=== PATIENT | female | born 1930 | race Caucasian/White ===

== ENCOUNTER 2018-05-10 22:11 | Emergency (ER) | payer OTHER, MEDICARE ==
[2018-05-10] MEDS ORDERED: cloNIDine HCl 0.1 MG TAB ONE (22:47)
--- NOTE | 2018-05-10 23:47 | ER ---
Nurse's Notes [facility] Name: Lolly Woo Age: 87 yrs Sex: Female : 1930 Arrival Date: 05/10/2018 Time: 22:13 Bed 24 Private MD: Debbie Gale C Diagnosis: HYPERTENSIVE URGENCY Presentation: 05/10 22:34 Presenting complaint: Patient states: her blood pressure has been high lately. bb Transition of care: patient was not received from another setting of care. Onset of symptoms is unknown. Risk Assessment: Do you want to hurt yourself or someone else? Patient reports no desire to harm self or others. Initial Sepsis Screen: Does the patient meet any 2 criteria? No. Patient's initial sepsis screen is negative. Does the patient have a suspected source of infection? No. Patient's initial sepsis screen is negative. Care prior to arrival: None. 22:34 Method Of Arrival: Ambulatory bb 22:34 Acuity: GLENNY 3 bb Triage Assessment: 22:43 General: Appears in no apparent distress. comfortable, slender, Behavior is calm, fc cooperative, appropriate for age. Pain: Denies pain. EENT: No deficits noted. 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 Full function Gait is steady, Speech is normal, Facial symmetry appears normal, Reports dizziness. Cardiovascular: Denies chest pain, Heart tones S1 S2 present Capillary refill < 3 seconds. Respiratory: No deficits noted. GI: No deficits noted. : No deficits noted. Derm: Skin is pink, warm \T\ dry. Musculoskeletal: Circulation, motion, and sensation intact. Capillary refill < 3 seconds, Range of motion: intact in all extremities. 23:15 General:. mg2 Historical: - Allergies: 22:37 NKDA; bb - Home Meds: 22:37 Hyzaar 100-12.5 mg Oral tab 1 tab once daily [Active]; Xanax 0.5 mg Oral tab 1 tab bb nightly [Active]; lovastatin 20 mg Oral tab 1 tab once daily [Active]; doxazosin 1 mg oral tab 1 tab twice a day [Active]; amlodipine 5 mg tab 1 tab once daily [Active]; - PMHx: 22:37 Hypertension; Hyperlipidemia; breast cancer; bb - PSHx: 22:37 Appendectomy; Tonsillectomy; Hysterectomy; pacemaker; exploratory abdominal; Lumpectomy;bb - Immunization history:: Adult Immunizations up to date. - Social history:: Smoking status: Patient/guardian denies using tobacco, Patient/guardian denies using alcohol, street drugs. - Ebola Screening: : No symptoms or risks identified at this time. Screenin:30 Abuse screen: Denies threats or abuse. Nutritional screening: No deficits noted. fc Tuberculosis screening: No symptoms or risk factors identified. Fall Risk None identified. Assessment: 22:45 Reassessment: see triage assessment. fc 23:29 Reassessment: Patient appears in no apparent distress at this time. Patient and/or mg2 family updated on plan of care and expected duration. Pain level reassessed. Patient is alert, oriented x 3, equal unlabored respirations, skin warm/dry/pink. 23:54 Reassessment: Patient and/or family updated on plan of care and expected duration. Pain fc level reassessed. Patient is alert, oriented x 3, equal unlabored respirations, skin warm/dry/pink. Pt given complete discharge instruction and verbalizes understanding. Continues to have no pain and states that dizziness is better. Vital Signs: 22:37 BP 195 / 70; Pulse 83; Resp 16 S; Pulse Ox 95% on R/A; Weight 63.5 kg (R); Height 5 ft. bb 6 in. (167.64 cm) (R); Pain 0/10; 23:01 BP 172 / 72; Pulse 61; Resp 18; Pulse Ox 97% on R/A; Pain 0/10; fc 23:28 BP 164 / 66; Pulse 60; Resp 18; Pulse Ox 96% ; Pain 0/10; mg2 23:36 BP 157 / 65; Pulse 60; Resp 18; Temp 98.1(O); Pulse Ox 95% on R/A; Pain 0/10; fc 22:37 Body Mass Index 22.60 (63.50 kg, 167.64 cm) ED Course: 22:13 Patient arrived in ED. sb2 22:14 Debbie Gale MD is Private Physician. sb2 22:20 Jaya Torres MD is Attending Physician. tw4 22:30 Patient has correct armband on for positive identification. Bed in low position. Call fc light in reach. Side rails up X 1. Pulse ox on. NIBP on. 22:30 No provider procedures requiring assistance completed. Patient did not have IV access fc during this emergency room visit. 22:34 Triage completed. bb 22:37 Arm band placed on Patient placed in an exam room, on a stretcher, on pulse oximetry. gladys Family accompanied patient. 23:44 Debbie Gale MD is Referral Physician. tw4 Administered Medications: 22:47 Drug: cloNIDine 0.1 mg Route: PO; mg2 23:56 Follow up: Response: No adverse reaction; Blood pressure is lowered fc Outcome: 23:46 Discharge ordered by . tw4 23:55 Discharged to home ambulatory, with friend. 23:55 Condition: good 23:55 Discharge instructions given to patient, friend, Instructed on discharge instructions, follow up and referral plans. Demonstrated understanding of instructions, follow-up care, Prescriptions given X none 23:56 Patient left the ED. fc Signatures: Viviana Bundy RN RN Amee Thompson RN RN bb Jaya Torres MD MD tw4 Nayely Hernandez 2 Chad Condon, HEMAL RN mg2
--- NOTE | 2018-05-10 23:47 | EDPHYS ---
Physician Documentation [facility] Name: Lolly Woo Age: 87 yrs Sex: Female : 1930 Arrival Date: 05/10/2018 Time: 22:13 Bed 24 Private MD: Debbie Gale C ED Physician Jaya Torres HPI: 05/10 23:41 This 87 yrs old Female presents to ER via Ambulatory with complaints of High tw4 Blood Pressure. 23:41 The patient has elevated blood pressure and discovered this at home. The patient has tw4 elevated blood pressure and discovered this at home, with a home device. Onset: The symptoms/episode began/occurred just prior to arrival, today. Modifying factors: The symptoms are aggravated by activity, The symptoms are alleviated by remaining still. Associated signs and symptoms: The patient has no apparent associated signs or symptoms. Severity of symptoms: At its worst the blood pressure was moderate, in the emergency department the blood pressure is unchanged. The patient has not experienced similar symptoms in the past. Historical: - Allergies: 22:37 NKDA; bb - Home Meds: 22:37 Hyzaar 100-12.5 mg Oral tab 1 tab once daily [Active]; Xanax 0.5 mg Oral tab 1 tab bb nightly [Active]; lovastatin 20 mg Oral tab 1 tab once daily [Active]; doxazosin 1 mg oral tab 1 tab twice a day [Active]; amlodipine 5 mg tab 1 tab once daily [Active]; - PMHx: 22:37 Hypertension; Hyperlipidemia; breast cancer; bb - PSHx: 22:37 Appendectomy; Tonsillectomy; Hysterectomy; pacemaker; exploratory abdominal; Lumpectomy;bb - Immunization history:: Adult Immunizations up to date. - Social history:: Smoking status: Patient/guardian denies using tobacco, Patient/guardian denies using alcohol, street drugs. - Ebola Screening: : No symptoms or risks identified at this time. ROS: 23:41 Constitutional: Negative for fever, chills, and weight loss, Eyes: Negative for injury, tw4 pain, redness, and discharge, Cardiovascular: Negative for chest pain, palpitations, and edema, Respiratory: Negative for shortness of breath, cough, wheezing, and pleuritic chest pain, Abdomen/GI: Negative for abdominal pain, nausea, vomiting, diarrhea, and constipation, Back: Negative for injury and pain, MS/Extremity: Negative for injury and deformity, Skin: Negative for injury, rash, and discoloration, Neuro: Negative for headache, weakness, numbness, tingling, and seizure. Exam: 23:41 Constitutional: This is a well developed, well nourished patient who is awake, alert, tw4 and in no acute distress. Head/Face: Normocephalic, atraumatic. Chest/axilla: Normal chest wall appearance and motion. Nontender with no deformity. No lesions are appreciated. Cardiovascular: Regular rate and rhythm with a normal S1 and S2. No gallops, murmurs, or rubs. Normal PMI, no JVD. No pulse deficits. Respiratory: Lungs have equal breath sounds bilaterally, clear to auscultation and percussion. No rales, rhonchi or wheezes noted. No increased work of breathing, no retractions or nasal flaring. Abdomen/GI: Soft, non-tender, with normal bowel sounds. No distension or tympany. No guarding or rebound. No evidence of tenderness throughout. Back: No spinal tenderness. No costovertebral tenderness. Full range of motion. MS/ Extremity: Pulses equal, no cyanosis. Neurovascular intact. Full, normal range of motion. Neuro: Awake and alert, GCS 15, oriented to person, place, time, and situation. Cranial nerves II-XII grossly intact. Motor strength 5/5 in all extremities. Sensory grossly intact. Cerebellar exam normal. Normal gait. Psych: Awake, alert, with orientation to person, place and time. Behavior, mood, and affect are within normal limits. Vital Signs: 22:37 BP 195 / 70; Pulse 83; Resp 16 S; Pulse Ox 95% on R/A; Weight 63.5 kg (R); Height 5 ft. bb 6 in. (167.64 cm) (R); Pain 0/10; 23:01 BP 172 / 72; Pulse 61; Resp 18; Pulse Ox 97% on R/A; Pain 0/10; fc 23:28 BP 164 / 66; Pulse 60; Resp 18; Pulse Ox 96% ; Pain 0/10; mg2 23:36 BP 157 / 65; Pulse 60; Resp 18; Temp 98.1(O); Pulse Ox 95% on R/A; Pain 0/10; fc 22:37 Body Mass Index 22.60 (63.50 kg, 167.64 cm) bb MDM: 22:40 Patient medically screened. tw4 23:41 Differential diagnosis: hypertensive crisis, Malignant HTN. Data reviewed: vital signs, tw4 nurses notes. Data interpreted: Pulse oximetry: Interpretation: normal. Counseling: I had a detailed discussion with the patient and/or guardian regarding: the historical points, exam findings, and any diagnostic results supporting the discharge/admit diagnosis. Counseling: I had a detailed discussion with the patient and/or guardian regarding: the presence of at least one elevated blood pressure reading (>120/80) during this emergency department visit. Medication response: clonidine partially reduced the patient's blood pressure. Response to treatment: and as a result, I will discharge patient. Special discussion: Based on the patient's history, exam and DX evaluation, there is no indication for emergent intervention or inpatient TX. It is understood by the patient/guardian that if the SXs persist or worsen they need to return immediately for re-evaluation. Administered Medications: 22:47 Drug: cloNIDine 0.1 mg Route: PO; mg2 23:56 Follow up: Response: No adverse reaction; Blood pressure is lowered fc Disposition: 05/10/18 23:46 Discharged to Home. Impression: HYPERTENSIVE URGENCY. - Condition is Stable. - Discharge Instructions: Hypertension, [id number]. - Medication Reconciliation Form, Thank You Letter, Antibiotic Education, Prescription Opioid Use form. - Follow up: Debbie Gale MD; When: Upon discharge from the Emergency Department; Reason: Further diagnostic work-up, Recheck today's complaints, Re-evaluation by your physician. - Problem is new. - Symptoms have improved. Signatures: Viviana Bundy RN RN Amee Thompson RN RN bb Jaya Torres MD MD tw4 Chad Condon RN RN mg2 Corrections: (The following items were deleted from the chart) 23:56 23:46 05/10/2018 23:46 Discharged to Home. Impression: HYPERTENSIVE URGENCY. Condition fc is Stable. Forms are Medication Reconciliation Form, Thank You Letter, Antibiotic Education, Prescription Opioid Use. Follow up: Debbie Gale; When: Upon discharge from the Emergency Department; Reason: Further diagnostic work-up, Recheck today's complaints, Re-evaluation by your physician. Problem is new. Symptoms have improved. tw4
[2018-05-11 00:35] VITALS: BP 157/65; TEMP 98.1; O2SAT 95
== END 2018-05-10 23:56 | disposition home or self-care (01) ==
LOC: ER 22:11
DX: I10 Essential (primary) hypertension (principal); E78.5 Hyperlipidemia, unspecified
CPT/HCPCS: 99283

== ENCOUNTER 2019-04-25 23:22 | Emergency (ER) | payer OTHER, MEDICARE ==
--- NOTE | 2019-04-26 00:42 | ER ---
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 pt stated she was seen ak1 by PCP last week. pt has been taking laxatives x2 weeks with no BM only gas. pt c/o dizziness X2 weeks with recent falls. Transition of care: patient was not received from another setting of care. Onset of symptoms is unknown. Risk Assessment: Do you want to hurt yourself or someone else? Patient reports no desire to harm self or others. Initial Sepsis Screen: Does the patient meet any 2 criteria? No. Patient's initial sepsis screen is negative. Does the patient have a suspected source of infection? No. Patient's initial sepsis screen is negative. Care prior to arrival: None. 23:45 Method Of Arrival: Ambulatory ak1 23:45 Acuity: GLENNY 3 ak1 Triage Assessment: 23:44 General: Appears in no apparent distress. Behavior is calm, cooperative. Pain: Denies ak1 pain. Neuro: Level of Consciousness is awake, alert, obeys commands, Oriented to person, place, time, situation, Critical Care Educator are equal bilaterally Moves all extremities. 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 Historical: - Allergies: 23:49 shrimp; ak1 - Home Meds: 23:47 amlodipine 5 mg tab 1 tab once daily [Active]; doxazosin 1 mg Oral tab 1 tab twice a ak1 day [Active]; Hyzaar 100-12.5 mg Oral tab 1 tab once daily [Active]; lovastatin 20 mg Oral tab 1 tab once daily [Active]; Xanax 0.5 mg Oral tab 1 tab nightly [Active]; Fish Oil oral oral [Active]; - PMHx: 23:47 breast cancer; Hyperlipidemia; Hypertension; ak1 - PSHx: 23:47 Hysterectomy; Appendectomy; Tonsillectomy; pacemaker; ak1 - Immunization history:: Adult Immunizations unknown. - Social history:: Smoking status: Patient/guardian denies using tobacco. - Ebola Screening: : No symptoms or risks identified at this time. Screenin:44 Abuse screen: Denies threats or abuse. Denies injuries from another. Nutritional rr5 screening: No deficits noted. Tuberculosis screening: No symptoms or risk factors identified. Fall Risk Secondary diagnosis (15 points) dizziness. IV access (20 points). Total Wolfe Fall Scale indicates Low Risk Score (25-44 pts). Fall prevention measures have been instituted. Side Rails Up X 2 Placed close to Nursing Station Frequent Obs/Assesments occuring Family Present and informed to notify staff if they need to leave bedside As available Patient and Family Educated on Fall Prevention Program and strategies. Assessment: 23:50 General: Appears in no apparent distress. comfortable, Behavior is calm, cooperative, rr5 appropriate for age. Pain: Denies pain. Neuro: Level of Consciousness is awake, alert, obeys commands, Oriented to person, place, time, situation, Appropriate for age Reports dizziness. Cardiovascular: Reports high BP Capillary refill < 3 seconds Patient's skin is warm and dry. Respiratory: Airway is patent Respiratory effort is even, unlabored, Respiratory pattern is regular, symmetrical. GI: Abdomen is flat, non-distended, Bowel sounds present X 4 quads. Abd is soft and non tender Reports constipation. : No signs and/or symptoms were reported regarding the genitourinary system. EENT: No signs and/or symptoms were reported regarding the EENT system. Derm: Skin is intact, Skin temperature is warm. Musculoskeletal: Circulation, motion, and sensation intact. Capillary refill < 3 seconds. 04/26 00:25 Reassessment: rectal exam done. clear for fecal impaction as per ED provider. rr5 00:45 Reassessment: Patient appears in no apparent distress at this time. Patient is alert, rr5 oriented x 3, equal unlabored respirations, skin warm/dry/pink. discharge instruction given and explained without complaints made, verbalized understanding. Vital Signs: 04/25 23:43 BP 182 / 82; Pulse 96; Resp 18; Temp 97.1; Pulse Ox 97% on R/A; Weight 59.87 kg (R); ak1 Height 5 ft. 5 in. (165.10 cm) (R); Pain 0/10; 23:58 BP 153 / 77; Pulse 65; Resp 17; Pulse Ox 98% ; rr5 04/26 00:27 BP 143 / 73; Pulse 66; Resp 16; Pulse Ox 97% on R/A; rr5 04/25 23:43 Body Mass Index 21.97 (59.87 kg, 165.10 cm) ak1 ED Course: 04/25 23:26 Patient arrived in ED. es 23:26 Debbie Gale MD is Private Physician. es 23:37 Josh Redmond, RN is Primary Nurse. rr5 23:43 Arm band placed on Patient placed in an exam room, on a stretcher, on pulse oximetry, ak1 Patient notified of wait time. 23:46 Jaya Torres MD is Attending Physician. tw4 23:46 Triage completed. ak1 23:48 Patient has correct armband on for positive identification. Bed in low position. Call ak1 light in reach. Side rails up X2. Adult w/ patient. Pulse ox on. NIBP on. 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 rr5 00:29 Debbie Gale MD is Referral Physician. tw4 00:53 Patient did not have IV access during this emergency room visit. rr5 01:00 Abdomen 1 View (KUB) XRAY In Process Unspecified. EDMS Administered Medications: No medications were administered Outcome: 00:30 Discharge ordered by . tw4 00:53 Discharged to home ambulatory, with friend. rr5 00:53 Condition: stable 00:53 Discharge instructions given to patient, Instructed on discharge instructions, follow up and referral plans. Demonstrated understanding of instructions, follow-up care. 00:54 Patient left the ED. rr5 Signatures: Dispatcher [employer] EDMS Laury Jackson Amber RN RN ak1 Jaya Torres MD MD tw4 Josh Redmond, RN RN rr5 Corrections: (The following items were deleted from the chart) 04/25 23:49 23:47 Allergies: NKDA; ak1 ak1
--- NOTE | 2019-04-26 00:44 | EDPHYS ---
Physician Documentation [facility] Name: Lolly Woo Age: 88 yrs Sex: Female : 1930 Arrival Date: 04/25/2019 Time: 23:26 Bed 19 Private MD: Debbie Gale C ED Physician Jaya Torres HPI: 04/26 00:49 This 88 yrs old Female presents to ER via Ambulatory with complaints of tw4 Constipation, High Blood Pressure, Dizziness. 00:49 The patient presents to the emergency department with constipation . Onset: The tw4 symptoms/episode began/occurred 2 week(s) ago. Modifying factors: The symptoms are alleviated by nothing, The symptoms are aggravated by nothing. Associate signs and symptoms: The patient has no apparent associated signs or symptoms. Associate signs and symptoms: Pertinent positives: constipation, Pertinent negatives: abdominal pain, diarrhea, dysuria, fever, lower GI bleeding. The patient has not experienced similar symptoms in the past. Historical: - Allergies: 04/25 23:49 shrimp; ak1 - Home Meds: 23:47 amlodipine 5 mg tab 1 tab once daily [Active]; doxazosin 1 mg Oral tab 1 tab twice a ak1 day [Active]; Hyzaar 100-12.5 mg Oral tab 1 tab once daily [Active]; lovastatin 20 mg Oral tab 1 tab once daily [Active]; Xanax 0.5 mg Oral tab 1 tab nightly [Active]; Fish Oil oral oral [Active]; - PMHx: 23:47 breast cancer; Hyperlipidemia; Hypertension; ak1 - PSHx: 23:47 Hysterectomy; Appendectomy; Tonsillectomy; pacemaker; ak1 - Immunization history:: Adult Immunizations unknown. - Social history:: Smoking status: Patient/guardian denies using tobacco. - Ebola Screening: : No symptoms or risks identified at this time. ROS: 04/26 00:49 Constitutional: Negative for fever, chills, and weight loss, Cardiovascular: Negative tw4 for chest pain, palpitations, and edema, Respiratory: Negative for shortness of breath, cough, wheezing, and pleuritic chest pain, Back: Negative for injury and pain, MS/Extremity: Negative for injury and deformity, Skin: Negative for injury, rash, and discoloration, Neuro: Negative for headache, weakness, numbness, tingling, and seizure. Abdomen/GI: Positive for constipation, Negative for abdominal pain, nausea and vomiting, nausea, vomiting, and diarrhea, nausea, vomiting, diarrhea, black/tarry stool, rectal pain, rectal bleeding, bowel incontinence, flatulence. Exam: 00:49 Constitutional: This is a well developed, well nourished patient who is awake, alert, tw4 and in no acute distress. Head/Face: Normocephalic, atraumatic. Chest/axilla: Normal chest wall appearance and motion. Nontender with no deformity. No lesions are appreciated. Cardiovascular: Regular rate and rhythm with a normal S1 and S2. No gallops, murmurs, or rubs. Normal PMI, no JVD. No pulse deficits. Respiratory: Lungs have equal breath sounds bilaterally, clear to auscultation and percussion. No rales, rhonchi or wheezes noted. No increased work of breathing, no retractions or nasal flaring. 00:49 MS/ Extremity: Pulses equal, no cyanosis. Neurovascular intact. Full, normal range of motion. Neuro: Awake and alert, GCS 15, oriented to person, place, time, and situation. Cranial nerves II-XII grossly intact. Motor strength 5/5 in all extremities. Sensory grossly intact. Cerebellar exam normal. Normal gait. 00:49 Abdomen/GI: Rectal exam: rectal tone normal, Stool: normal, guaiac negative. Vital Signs: 04/25 23:43 BP 182 / 82; Pulse 96; Resp 18; Temp 97.1; Pulse Ox 97% on R/A; Weight 59.87 kg (R); ak1 Height 5 ft. 5 in. (165.10 cm) (R); Pain 0/10; 23:58 BP 153 / 77; Pulse 65; Resp 17; Pulse Ox 98% ; rr5 04/26 00:27 BP 143 / 73; Pulse 66; Resp 16; Pulse Ox 97% on R/A; rr5 04/25 23:43 Body Mass Index 21.97 (59.87 kg, 165.10 cm) ak1 MDM: 04/25 23:46 Patient medically screened. tw4 04/26 04:16 Data reviewed: vital signs, nurses notes. Data interpreted: Pulse oximetry: tw4 Interpretation: normal. Counseling: I had a detailed discussion with the patient and/or guardian regarding: the historical points, exam findings, and any diagnostic results supporting the discharge/admit diagnosis. Special discussion: I discussed with the patient/guardian in detail that at this point there is no indication for admission to the hospital. It is understood, however, that if the symptoms persist or worsen the patient needs to return immediately for re-evaluation. 04/25 23:57 Order name: Abdomen 1 View (KUB) XRAY tw4 Administered Medications: No medications were administered Disposition: 04/26/19 00:30 Discharged to Home. Impression: Constipation, unspecified, Abnormal weight loss. - Condition is Stable. - Discharge Instructions: Constipation, Adult. - Prescriptions for Lactulose 10 gram/15 mL Oral Solution - take 30 milliliters by ORAL route once daily; 100 milliliter. - Medication Reconciliation Form, Thank You Letter, Antibiotic Education, Prescription Opioid Use form. - Follow up: Debbie Gale MD; When: Upon discharge from the Emergency Department; Reason: If symptoms return, Recheck today's complaints, Continuance of care. - Problem is new. - Symptoms have improved. Signatures: Dispatcher [employer] EDMS Latrice Miller RN RN ak1 Jaya Torres MD MD tw4 Josh Redmond RN RN rr5 Corrections: (The following items were deleted from the chart) 04/25 23:49 23:47 Allergies: NKDA; ak1 ak1 04/26 00:54 00:30 04/26/2019 00:30 Discharged to Home. Impression: Constipation, unspecified; rr5 Abnormal weight loss. Condition is Stable. Forms are Medication Reconciliation Form, Thank You Letter, Antibiotic Education, Prescription Opioid Use. Follow up: Debbie Gale; When: Upon discharge from the Emergency Department; Reason: If symptoms return, Recheck today's complaints, Continuance of care. Problem is new. Symptoms have improved. tw4
[2019-04-26 03:05] VITALS: TEMP 97.1
[2019-04-26 03:08] VITALS: BP 143/73; O2SAT 97
--- NOTE | 2019-04-26 11:07 | RAD REPORT ---
EXAM DESCRIPTION: RAD - Abdomen 1 View (KUB) - 04/26/2019 12:15 am CLINICAL HISTORY: Abdomen pain. FINDINGS: The bowel gas pattern is unremarkable. Surgical suture within the pelvis. Several calcifications in the pelvis may represent phleboliths. Vascular calcifications are seen
== END 2019-04-26 00:54 | disposition home or self-care (01) ==
LOC: ER 23:22
DX: K59.00 Constipation, unspecified (principal); R63.4 Abnormal weight loss; I10 Essential (primary) hypertension; E78.5 Hyperlipidemia, unspecified; Z85.3 Personal history of malignant neoplasm of breast; Z95.0 Presence of cardiac pacemaker; Z91.013 Allergy to seafood
CPT/HCPCS: 74018; 99283